=== PATIENT | female | born 1960 | race Caucasian/White ===

== ENCOUNTER 2017-12-09 02:46 | Emergency (ER) | payer MEDICAID ==
[2017-12-09] MEDS: KETOROLAC 60 MG INJ IM (03:40)
== END 2017-12-09 05:40 | disposition home or self-care (01) ==
LOC: FTE 02:46
DX: S22.31XA Fracture of one rib, right side, initial encounter for closed fracture (principal); Y08.89XA Assault by other specified means, initial encounter
CPT/HCPCS: 71045; 71100; 73562; 96372; 99284-25